=== PATIENT | male | born 1955 | race Caucasian/White ===

== ENCOUNTER 2021-07-25 17:41 | Emergency (ER) | payer OTHER ==
[~2021-07-25] VITALS: Ht 180.3 cm; Wt 115.2 kg
[~2021-07-25 17:41] MED LIST: AVAPRO300 MG PO; COREG6.25 MG PO; INVOKANA300 MG PO; L-LYSINE500 M1 PO; LORTAB 7.5-3251 EACH PO; MOBIC15 MG PO; NEXIUM20 MG PO; PERCOCET 7.5-31 EACH PO; VITAMIN B-121000 MCG PO; XYZAL5 MG PO
== END 2021-07-25 21:10 | disposition home or self-care (01) ==
LOC: ER1 17:41
DX: U07.1 COVID-19 (principal); Z23 Encounter for immunization; E11.9 Type 2 diabetes mellitus without complications; I10 Essential (primary) hypertension; Z90.49 Acquired absence of other specified parts of digestive tract; Z88.2 Allergy status to sulfonamides
CPT/HCPCS: 99283; M0245